=== PATIENT | female | born 1970 | race African-American/Black ===

== ENCOUNTER 2016-12-10 16:06 | Emergency (ER) | payer OTHER ==
[~2016-12-10 16:06] MED LIST: ACETAMINOOPHEN-1 TAB PO; DESYREL50 MG PO; LORTAB 5/500 TA1 TA1 PO; MONTELUKAST SOD10 MG PO; NAPROSYN500 MG PO; PHENERGAN25 MG PO; PROAIR HFA8.5 GM IH; TOPIRAMATE25 MG PO
[2016-12-10 21:18] LABS: URINE SOURCE CLEAN CATCH
[2016-12-10 21:23] LABS: URINE APPEARANCE CLEAR; URINE BILIRUBIN NEG (NEG); URINE BLOOD NEG (NEG); URINE COLOR YELLOW; URINE GLUCOSE NEG (NEG); URINE KETONE TRACE (NEG); URINE LEUKOCYTE ESTERASE NEG (NEG); URINE NITRATE NEG (NEG); URINE PH 6.5 (5-8); URINE PROTEIN NEG (NEG); URINE SPECIFIC GRAVITY 1.021 (1.003-1.035)
[2016-12-10 21:31] LABS: CULTURE INDICATED? NO
[2016-12-14 15:43] LABS: CHLAMYDIA TRACH Not Detected (Not Detected); N GONOR Not Detected (Not Detected)
== END 2016-12-10 21:55 | disposition home or self-care (01) ==
LOC: CED 16:06
PROVIDERS: Emergency Medicine; Nurse Practitioner
DX: R30.0 Dysuria (principal); F17.200 Nicotine dependence, unspecified, uncomplicated; Z90.710 Acquired absence of both cervix and uterus; Z91.041 Radiographic dye allergy status
CPT/HCPCS: 81003; 87210; 87491; 87591; 87808; 87905; 99284